=== PATIENT | male | born 1990 | race Caucasian/White ===

== ENCOUNTER 2016-10-10 11:05 | Emergency (ER) | payer BC ==
[~2016-10-10] VITALS: Ht 177.8 cm; Wt 68.0 kg
[2016-10-10 12:08] VITALS: BP 119/69
[2016-10-10 12:35] LABS: BASOPHILS % 0.3 % (0.0-2.0); EOSINOPHILS % 13.2 % (0.0-5.0); HEMATOCRIT. 45.4 % (42.0-52.0); HEMOGLOBIN. 15.9 g/dL (14.0-18.0); LYMPHOCYTES % 18.9 % (20.0-50.0); MEAN CORPUSCULAR HEMOGLOBIN 30.7 pg (28.0-32.0); MEAN CORPUSCULAR VOLUME 87.9 fL (80.0-94.0); MEAN PLATELET VOLUME 9.9 fl (7.4-10.4); MONOCYTES % 5.1 % (2.0-8.0); NEUTROPHILS % 62.5 % (40.0-76.0); PLATELET 108 x1000/uL (130-400); RED BLOOD CELL COUNT 5.17 mill/uL (4.7-6.1); RED CELL DISTRIBUTION WIDTH 12.9 % (11.6-14.6)
[2016-10-10 12:43] LABS: INR 1.2
[2016-10-10 12:52] LABS: CARBON DIOXIDE 33 mEq/L (21-32); CHLORIDE 104 mEq/L (98-107)
== END 2016-10-10 13:45 | disposition home or self-care (01) ==
LOC: ER 11:13
DX: R10.9 Unspecified abdominal pain (principal)
CPT/HCPCS: 36415; 80053; 83690; 85025; 85610; 87177; 87209; 99284

== ENCOUNTER 2018-01-22 14:50 | Emergency (ER) | payer SELFPAY ==
[~2018-01-22] VITALS: Ht 177.8 cm; Wt 83.0 kg
[2018-01-22] MEDS ORDERED: FAMOTIDINE 20MG/2ML VIAL IV STA (18:02)
[2018-01-22] MEDS ORDERED: SODIUM CHLORIDE 0.9% 1,000 ML IV ONE (18:02)
[2018-01-22 18:48] LABS: BASOPHILS % 0.3 % (0.0-2.0); EOSINOPHILS % 0.5 % (0.0-5.0); HEMATOCRIT. 43.1 % (42.0-52.0); HEMOGLOBIN. 15.5 g/dL (14.0-18.0); LYMPHOCYTES % 17.1 % (20.0-50.0); MEAN CORPUSCULAR HEMOGLOBIN 30.8 pg (28.0-32.0); MEAN CORPUSCULAR VOLUME 85.9 fL (80.0-94.0); MEAN PLATELET VOLUME 9.6 fl (7.4-10.4); MONOCYTES % 9.5 % (2.0-8.0); NEUTROPHILS % 72.6 % (40.0-76.0); PLATELET 132 x1000/uL (130-400); RED BLOOD CELL COUNT 5.01 mill/uL (4.7-6.1); RED CELL DISTRIBUTION WIDTH 13.5 % (11.6-14.6)
[2018-01-22 18:58] LABS: CHLORIDE 105 mEq/L (98-107)
[2018-01-22] MEDS ORDERED: LEVOFLOXACIN 500MG TABLET PO ONE (22:00)
[2018-01-22] MEDS ORDERED: METRONIDAZOLE 500MG TABLET PO ONE (22:00)
[2018-01-22 23:33] LABS: CLARITY URINE CLEAR (CLEAR); COLOR URINE YELLOW (YELLOW); KETONES URINE NEGATIVE (NEGATIVE); LEUKOCYTE ESTERASE URINE NEGATIVE (NEGATIVE); NITRITE URINE NEGATIVE (NEGATIVE); OCCULT BLOOD URINE NEGATIVE (NEGATIVE); PH URINE 6.5 (4.5-8.0); PROTEIN URINE NEGATIVE (NEGATIVE); SPECIFIC GRAVITY URINE 1.067 (1.005-1.030); UROBILINOGEN URINE 0.2 E.U./dL (0.2-1.0)
[2018-01-22] MEDS ORDERED: IOHEXOL-300 100 ML BOTTLE ONE (23:50)
[2018-01-23 00:01] VITALS: BP 134/87
== END 2018-01-23 00:06 | disposition home or self-care (01) ==
LOC: ER 16:16
DX: Z88.6 Allergy status to analgesic agent (principal); K52.9 Noninfective gastroenteritis and colitis, unspecified
CPT/HCPCS: 36415; 74022; 74177; 80053; 81003; 83690; 85025; 96361; 96374; 99285; J3490; J7030; Q9967; Z7610